=== PATIENT | male | born 1965 | race Hispanic/Latino ===

== ENCOUNTER 2017-11-30 17:53 | Emergency (ER) | payer BC ==
[2017-11-30 18:10] VITALS: O2SAT 98
[2017-11-30 18:21] VITALS: BMI 30.8
[2017-11-30] MEDS ORDERED: Sodium Chloride 0.9% 1,000 ML IV ONE (18:32)
[2017-11-30 19:07] LABS: BASO # 0.07 K/mm3 (0.0-2.0); BASO % 0.8 % (0.0-3.0); EOS # 0.5 (0.0-0.7); EOS % 5.7 % (1.5-5.0); GRAN # 5.49 (1.4-6.5); GRAN % 58.8 % (50.0-68.0); HEMOGLOBIN 14.8 g/dL (14.0-18.0); LYMPH # 2.5 (1.2-3.4); MEAN CELL VOLUME 82.1 fl (80.0-105.0); MEAN CORPUSCULAR HEMOGLOBIN 28.2 pg (25.0-35.0); MEAN CORPUSCULAR HGB CONC 34.3 g/dl (31.0-37.0); MEAN PLATELET VOLUME 9.9 fl (7.0-11.0); MONO # 0.7 (0.1-0.6); MONO % 7.7 % (1.0-6.0); RBC 5.25 10^6/uL (3.5-6.1); WHITE BLOOD COUNT 9.3 10^3/ul (4.5-11.0)
--- NOTE | 2017-11-30 19:21 | ED PDOC ---
Arrival/HPI - General Chief Complaint: Dizziness/Lightheaded Time Seen by Provider: 11/30/17 18:16 Historian: Patient - History of Present Illness Narrative History of Present Illness (Text): 11/30/17 19:21 52yo male with Past medical history of hypertension, CAD with cardiac stent who was bib EMS for dizziness. Patient states after walking up flight of stairs , he sat down and then felt dizzy. He describes dizziness as lightheadedness. Also report nasal congestion and facial pressure over his sinuses. Notes that the congestion started today. States he feels thirsty, even after drinking water. He is s/p left elbow surgery repair 6weeks ago. States he fractured his elbow and required a surgery. He denies shortness of breath, diaphoresis, fever , chills, sore throat, tinnitus, chest pain, nausea, vomiting, focal weakness, slurred speech. Past Medical History - Provider Review Nursing Documentation Reviewed: Yes - Infectious Disease Hx of Infectious Diseases: None - Tetanus Immunization Tetanus Immunization: Unknown - Cardiac Hx Cardiac Disorders: Yes Hx Peripheral Vascular Disease: Yes (DVT PARTIAL L LEG 01-12-15) - Pulmonary Hx Respiratory Disorders: Yes Hx Asthma: Yes - Neurological Hx Neurological Disorder: No - HEENT Hx HEENT Disorder: No - Renal Hx Renal Disorder: Yes (Kidney stones) - Endocrine/Metabolic Hx Endocrine Disorders: Yes Hx Diabetes Mellitus Type 2: Yes - Hematological/Oncological Hx Blood Disorders: No - Integumentary Hx Dermatological Disorder: No - Musculoskeletal/Rheumatological Hx Musculoskeletal Disorders: No - Gastrointestinal Hx Gastrointestinal Disorders: Yes Hx Gastroesophageal Reflux: Yes - Genitourinary/Gynecological Hx Genitourinary Disorders: No - Psychiatric Hx Psychophysiologic Disorder: No Hx Substance Use: No - Surgical History Hx Angioplasty: Yes Hx Musculoskeletal Surgery: Yes Hx Orthopedic Surgery: (knee and ankle) - Anesthesia Hx Anesthesia: Yes Hx Anesthesia Reactions: No Hx Malignant Hyperthermia: No - Suicidal Assessment Feels Threatened In Home Enviroment: No Family/Social History - Physician Review Nursing Documentation Reviewed: Yes Family/Social History: Unknown Family HX Smoking Status: Never Smoked Hx Alcohol Use: No Hx Substance Use: No Hx Substance Use Treatment: No Allergies/Home Meds Allergies/Adverse Reactions: Allergies iodine Allergy (Verified 11/30/17 18:59) ANGIOEDEMA shellfish derived Allergy (Verified 11/30/17 18:59) ANAPHYLAXIS Review of Systems - Physician Review All systems were reviewed & negative as marked: Yes - Review of Systems Constitutional: Normal Eyes: Normal ENT: Sinus Congestion Respiratory: Normal Cardiovascular: Normal Gastrointestinal: Normal Genitourinary Male: Normal Musculoskeletal: Normal Skin: Normal Neurological: Dizziness. absent: Headache, Focal Weakness, Gait Changes, Speech Changes, Facial Droop Endocrine: Normal Hemo/Lymphatic: Normal Psychiatric: Normal Physical Exam Vital Signs Reviewed: Yes Vital Signs Temp Pulse Resp BP Pulse Ox 11/30/17 20:30 98.7 F 11/30/17 18:09 98.8 F 76 18 124/86 98 Temperature: Afebrile Blood Pressure: Normal Pulse: Regular Respiratory Rate: Normal Appearance: Positive for: Well-Appearing, Non-Toxic, Comfortable Pain Distress: None Mental Status: Positive for: Alert and Oriented X 3 - Systems Exam Head: Present: Atraumatic, Normocephalic Pupils: Present: PERRL Extroacular Muscles: Present: EOMI Conjunctiva: Present: Normal Mouth: Present: Moist Mucous Membranes Nose (Internal): Present: Other (Tenderness over the maxillary and frontal sinuses) Neck: Present: Normal Range of Motion Respiratory/Chest: Present: Clear to Auscultation, Good Air Exchange. No: Respiratory Distress, Accessory Muscle Use Cardiovascular: Present: Regular Rate and Rhythm, Normal S1, S2. No: Murmurs Abdomen: No: Tenderness, Distention, Peritoneal Signs Back: Present: Normal Inspection Upper Extremity: Present: Normal Inspection. No: Cyanosis, Edema Lower Extremity: Present: Normal Inspection. No: Edema Neurological: Present: GCS=15, CN II-XII Intact, Speech Normal, Motor Func Grossly Intact, Normal Sensory Function, Normal Cerebellar Funct, Norm Deep Tendon Reflexes, Gait Normal, Memory Normal, Normal 2Pt Descrimination, Other ( No focal neurological deficit) Skin: Present: Warm, Dry, Normal Color. No: Rashes Psychiatric: Present: Alert, Oriented x 3, Normal Insight, Normal Concentration Medical Decision Making ED Course and Treatment: 11/30/17 20:46 PT in Emergency department for stated history. He was hemodynamically stable in Emergency department. his lab was unremarkable EKG NSR @76bpm. NSTMI He was orthostatic and hydrated in Emergency department. Head CT IMPRESSION: 1. No definite acute intracranial abnormality. 2. Sinus disease. 3. Incidental/non-acute findings are described above. Result was DW the pt. He was offered admission for observation secondary to his cardiac history, although he had no chest pain, but he declined admission. His dizziness is likely secondary to the sinus disease. He will be DC home with Augmentin. Referred to ENT. - Lab Interpretations Lab Results: 11/30/17 18:38 04 18:38 Lab Results 11/30/17 18:38: PT 12.1, INR 1.06, APTT 30.8, D-Dimer, Quantitative < 200 11/30/17 18:38: Sodium 140, Potassium 3.6, Chloride 103, Carbon Dioxide 28, Anion Gap 12, BUN 16, Creatinine 0.7 L, Est GFR ( Amer) > 60, Est GFR ( Non-Af Amer) > 60, Random Glucose 135 H, Calcium 9.4, Magnesium 2.0, Total Bilirubin 0.2, AST 30, ALT 35, Alkaline Phosphatase 55, Lactate Dehydrogenase 554, Total Creatine Kinase 316 H, CK-MB (CK-2) 8.2 H, CK-MB (CK-2) % 2.6, Troponin I < 0.01 D, Total Protein 7.5, Albumin 4.1, Globulin 3.5, Albumin/ Globulin Ratio 1.2 11/30/17 18:38: WBC 9.3 D, RBC 5.25, Hgb 14.8, Hct 43.1, MCV 82.1, MCH 28.2, MCHC 34.3, RDW 14.0, Plt Count 276, MPV 9.9, Gran % 58.8, Lymph % (Auto) 27.0, [place] % (Auto) 7.7 H, Eos % (Auto) 5.7 H, Baso % (Auto) 0.8, Gran # 5.49, Lymph # (Auto) 2.5, [place] # (Auto) 0.7 H, Eos # (Auto) 0.5, Baso # (Auto) 0.07 - RAD Interpretation Radiology Orders: 11/30/17 18:29 HEAD W/O CONTRAST [CT] Stat - Medication Orders Current Medication Orders: Sodium Chloride (Sodium Chloride 0.9%) 1,000 mls @ 250 mls/hr IV .Q4H ONE Stop: 11/30/17 22:31 Last Admin: 11/30/17 18:36 Dose: 250 mls/hr eMAR Start Stop Document 11/30/17 18:36 OCS (Rec: 11/30/17 18:37 OCS [id number]) Intravenous Solution Start Date 11/30/17 Start Time 18:37 Clindamycin Phosphate 600 mg/ (Sodium Chloride) 54 mls @ 108 mls/hr IVPB STAT STA PRN Reason: Protocol Stop: 11/30/17 21:07 Disposition/Present on Arrival - Present on Arrival Any Indicators Present on Arrival: No History of DVT/PE: Yes History of Uncontrolled Diabetes: No Urinary Catheter: No History of Decub. Ulcer: No History Surgical Site Infection Following: None - Disposition Have Diagnosis and Disposition been Completed?: Yes Diagnosis: Acute sinusitis, Dizziness Disposition: HOME/ ROUTINE Disposition Time: 20:45 Patient Plan: Discharge Patient Problems: Current Active Problems Problem Status Onset Acute sinusitis Acute Dizziness Acute Condition: STABLE Discharge Instructions (ExitCare): Sinusitis, Adult (DC), Dizziness, Nonvertigo , (DC) Additional Instructions: Follow up with your doctor/ENT Drink plenty of fluid Return to Emergency department for any new symptoms Prescriptions: Amoxicillin/Clavulanate [Augmentin 875 MG-125 MG] 1 tab PO BID #20 tab Referrals: Mati Joel MD [Primary Care Provider] - Follow up with primary Forms: [employer] (Yi)
[2017-11-30 19:25] LABS: INR 1.06 (0.93-1.08); PARTIAL THROMBOPLASTIN TIME 30.8 Seconds (25.1-36.5); PROTHROMBIN TIME 12.1 SECONDS (9.4-12.5)
[2017-11-30 19:33] LABS: ALB/GLOB RATIO 1.2 (1.1-1.8); ALBUMIN 4.1 g/dL (3.0-4.8); ALT/SGPT 35 U/L (7-56); AST/SGOT 30 U/L (17-59); BLOOD UREA NITROGEN 16 mg/dL (7-21); CALCIUM 9.4 mg/dL (8.4-10.5); GFR AFRICAN-AMERICAN > 60; GFR NON-AFRICAN AMERICAN > 60
[2017-11-30 19:44] LABS: TROPONIN I < 0.01 ng/mL
[2017-11-30 19:52] LABS: CK MB% 2.6 % (2.5-3.0); CK-MB 8.2 ng/mL (0.0-3.6)
[2017-11-30 19:53] LABS: D DIMER < 200 ng/mL (0-243)
--- NOTE | 2017-11-30 20:07 | CT ---
EXAM: CT Head Without Intravenous Contrast CLINICAL HISTORY: 52 years old, male; Pain; Headache; Headache not specified TECHNIQUE: Axial computed tomography images of the head/brain without intravenous contrast. All CT scans at this facility use one or more dose reduction techniques, viz.: automated exposure control; ma/kV adjustment per patient size (including targeted exams where dose is matched to indication; i.e. head); or iterative reconstruction technique. Coronal and sagittal reformatted images were created and reviewed. COMPARISON: No relevant prior studies available. FINDINGS: Brain: Minimal atrophy. No intracranial hemorrhage. No mass. No definite edema. Ventricles: No hydrocephalus. Bones/joints: No acute fracture. Soft tissues: Unremarkable. Sinuses: Near complete opacification of LEFT sphenoid sinus. Moderate mucosal thickening of ethmoid sinuses. Scattered minimal to mild mucosal thickening of remaining sinuses. Mastoid air cells: No mastoid effusion. Orbits: Unremarkable as visualized. IMPRESSION: 1. No definite acute intracranial abnormality. 2. Sinus disease. 3. Incidental/non-acute findings are described above.
[2017-11-30] MEDS ORDERED: Magnesium Sulfate 2 GM in Sodium Chloride 0.9% 100 ML IVPB ONE (20:23)
[2017-11-30 20:30] VITALS: TEMP 98.7
[2017-11-30] MEDS ORDERED: Amoxicillin-Clav 875-125 mg Tab PO STA (20:41)
[2017-11-30 21:02] VITALS: BP 130/86; PULSE 80; RESP 20
--- NOTE | 2017-12-01 21:02 | CARD ---
APPROVED REPORT EKG Measurement Heart [id number] <Conclusion> Normal sinus rhythm Nonspecific T wave abnormality Abnormal ECG
== END 2017-11-30 21:30 | disposition home or self-care (01) ==
LOC: ED 17:53
DX: J01.90 Acute sinusitis, unspecified (principal); R42 Dizziness and giddiness; I10 Essential (primary) hypertension; I25.10 Atherosclerotic heart disease of native coronary artery without angina pectoris; E11.9 Type 2 diabetes mellitus without complications
CPT/HCPCS: 70450; 80053; 82550; 82553; 83615; 83735; 84484; 85025; 85378; 85610; 85730; 93005; 99285; J7040

== ENCOUNTER 2018-01-30 23:30 | Emergency (ER) | payer BC ==
[2018-01-30 23:30] VITALS: BMI 30.8
[2018-01-30 23:49] VITALS: TEMP 98.3
--- NOTE | 2018-01-30 23:59 | ED PDOC ---
Arrival/HPI - General Chief Complaint: Chest Pain Time Seen by Provider: 01/30/18 23:35 Historian: Patient - History of Present Illness Narrative History of Present Illness (Text): 01/30/18 23:56 Urban Herron is a 52 year old male, whose past medical history includes CABG, CAD with coronary stents, and diabetes, who presents to the Emergency department complaining of chest pain. Patient states he was at home watching TV when he began experiencing mid-sternal chest pain and a throbbing frontal headache. Patient denies any fever, chills, shortness of breath, nausea, vomiting, diarrhea, urinary symptoms, back pain, neck pain, vision changes, dizziness, or any other complaints. Past Medical History - Provider Review Nursing Documentation Reviewed: Yes - Infectious Disease Hx of Infectious Diseases: None - Tetanus Immunization Tetanus Immunization: Unknown - Cardiac Hx Cardiac Disorders: Yes Hx Peripheral Vascular Disease: Yes (DVT PARTIAL L LEG 01-12-15) - Pulmonary Hx Respiratory Disorders: Yes Hx Asthma: Yes - Neurological Hx Neurological Disorder: No - HEENT Hx HEENT Disorder: No - Renal Hx Renal Disorder: Yes (Kidney stones) - Endocrine/Metabolic Hx Endocrine Disorders: Yes Hx Diabetes Mellitus Type 2: Yes - Hematological/Oncological Hx Blood Disorders: No - Integumentary Hx Dermatological Disorder: No - Musculoskeletal/Rheumatological Hx Musculoskeletal Disorders: No - Gastrointestinal Hx Gastrointestinal Disorders: Yes Hx Gastroesophageal Reflux: Yes - Genitourinary/Gynecological Hx Genitourinary Disorders: No - Psychiatric Hx Psychophysiologic Disorder: No Hx Substance Use: No - Surgical History Hx Angioplasty: Yes Hx Musculoskeletal Surgery: Yes Hx Open Heart Surgery: Yes Hx Orthopedic Surgery: (knee and ankle) - Anesthesia Hx Anesthesia: Yes Hx Anesthesia Reactions: No Hx Malignant Hyperthermia: No - Suicidal Assessment Feels Threatened In Home Enviroment: No Family/Social History - Physician Review Nursing Documentation Reviewed: Yes Family/Social History: Unknown Family HX Smoking Status: Never Smoked Hx Alcohol Use: No Hx Substance Use: No Hx Substance Use Treatment: No Allergies/Home Meds Allergies/Adverse Reactions: Allergies iodine Allergy (Verified 01/30/18 23:49) ANGIOEDEMA shellfish derived Allergy (Verified 01/30/18 23:49) ANAPHYLAXIS Review of Systems - Physician Review All systems were reviewed & negative as marked: Yes - Review of Systems Constitutional: Normal. absent: Fevers Eyes: Normal ENT: Normal Respiratory: Normal. absent: SOB, Cough Cardiovascular: Chest Pain Gastrointestinal: Normal. absent: Abdominal Pain, Diarrhea, Nausea, Vomiting Genitourinary Male: Normal. absent: Dysuria, Frequency, Hematuria, Urinary Output Changes Musculoskeletal: Normal. absent: Back Pain, Neck Pain Skin: Normal. absent: Rash Neurological: Headache. absent: Dizziness Endocrine: Normal Hemo/Lymphatic: Normal Psychiatric: Normal Physical Exam Vital Signs Reviewed: Yes Vital Signs Temp Pulse Resp BP Pulse Ox 01/31/18 02:15 66 13 140/91 H 96 01/30/18 23:44 98.3 F 60 18 147/96 H 100 Temperature: Afebrile Blood Pressure: Normal Pulse: Regular Respiratory Rate: Normal Appearance: Positive for: Well-Appearing, Non-Toxic, Comfortable Pain Distress: None Mental Status: Positive for: Alert and Oriented X 3 - Systems Exam Head: Present: Atraumatic, Normocephalic Pupils: Present: PERRL Extroacular Muscles: Present: EOMI Conjunctiva: Present: Normal Ears: Present: Normal, NORMAL TM, Normal Canal. No: Erythema, TM Bulging, Fluid , TM Perf Mouth: Present: Moist Mucous Membranes Pharnyx: Present: Normal. No: ERYTHEMA, EXUDATE, TONSILS ENLARGED, Peritonsilar Swelling, Uvular Deviation, Muffled/Hoarse Voice, Strider, Soft Palate/Uvular Edema Nose (External): Present: Atraumatic Nose (Internal): Present: Normal Inspection Neck: Present: Normal Range of Motion. No: Meningeal Signs, MIDLINE TENDERNESS , Paraspinal Tenderness Respiratory/Chest: Present: Clear to Auscultation, Good Air Exchange. No: Respiratory Distress, Accessory Muscle Use Cardiovascular: Present: Regular Rate and Rhythm, Normal S1, S2. No: Murmurs Abdomen: No: Tenderness, Distention, Peritoneal Signs Back: Present: Normal Inspection. No: CVA Tenderness, Midline Tenderness, Paraspinal Tenderness Upper Extremity: Present: Normal Inspection. No: Cyanosis, Edema Lower Extremity: Present: Normal Inspection. No: Edema Neurological: Present: GCS=15, CN II-XII Intact, Speech Normal, Motor Func Grossly Intact, Normal Sensory Function, Normal Cerebellar Funct Skin: Present: Warm, Dry, Normal Color. No: Rashes Psychiatric: Present: Alert, Oriented x 3, Normal Insight, Normal Concentration Medical Decision Making ED Course and Treatment: 01/30/18 23:56 Impression: 52 year old male complaining of chest pain and throbbing frontal headache tonight. Plan: -- CT Head w/o contrast -- EKG -- Chest X-ray -- Labs, cardiac enzymes -- IV fluids -- Reassess and disposition Prior Visits: Notes and results from previous visits were reviewed. Progress Notes: Reviewed EKG, NSR at 62 bpm. Non-specific ST/T wave changes. 01/31/18 01:33 CT Head shows: No intracranial hemorrhage. No intracranial edema. No evidence of infarct. Again seen is partial opacification of the frontal sinuses, ethmoid sinuses, and left sphenoid sinus similar to prior. Recommend clinical correlation with regards to symptoms of sinusitis. IMPRESSION: Sinus disease as above. 01/31/18 03:31 Discussed results and plan with pt. Pt was offered hospital admission for further observation, pt refused, states he wants to go home. The patient is choosing to leave against medical advice. I have personally explained to the patient that choosing to do so may result in permanent bodily harm or . I have discussed at great length that without further evaluation and monitoring there may be unforeseen circumstances and/or deterioration causing permanent bodily harm or as a result of their choice. The patient is alert, oriented, and shows the mental capacity to make clear decisions regarding the patients health care at this time. The patient continues to wish to leave against medical advice. In light of the patients decision to leave against medical advice, patient is aware of the importance to following up as instructed. The patient has been advised that they should return to the emergency room immediately if they change their mind at any time, or if their condition begins to change or worsen in any way. - Lab Interpretations Lab Results: 01/30/18 23:50 01/30/18 23:50 Lab Results 01/30/18 23:50: PT 12.0, INR 1.05, APTT 29.1 01/30/18 23:50: WBC 8.2, RBC 4.97, Hgb 13.9 L, Hct 41.0 L, MCV 82.5, MCH 28.0, MCHC 33.9, RDW 14.0, Plt Count 267, MPV 10.0 01/30/18 23:50: Sodium 138, Potassium 3.7, Chloride 102, Carbon Dioxide 25, Anion Gap 15, BUN 17, Creatinine 0.8, Est GFR ( Amer) > 60, Est GFR (Non- Af Amer) > 60, Random Glucose 87, Calcium 8.9, Total Bilirubin 0.4, AST 26, ALT 31, Alkaline Phosphatase 54, Lactate Dehydrogenase 492, Total Creatine Kinase 425 H, CK-MB (CK-2) 9.1 H, CK-MB (CK-2) % 2.1 L, Troponin I < 0.01, Total Protein 7.4, Albumin 4.1, Globulin 3.2, Albumin/Globulin Ratio 1.3 01/30/18 23:45: POC Glucose (mg/dL) 71 I have reviewed the lab results: Yes - RAD Interpretation Radiology Orders: 01/31/18 00:05 HEAD W/O CONTRAST [CT] Stat 01/31/18 00:06 CHEST PORTABLE [RAD] Stat [employer]: ED Physician, Radiologist - EKG Interpretation Interpreted by ED Physician: Yes Type: 12 lead EKG - Scribe Statement The provider has reviewed the documentation as recorded by the Jenifer Angel Provider Scribe Attestation: All medical record entries made by the Scribe were at my direction and personally dictated by me. I have reviewed the chart and agree that the record accurately reflects my personal performance of the history, physical exam, medical decision making, and the department course for this patient. I have also personally directed, reviewed, and agree with the discharge instructions and disposition. Disposition/Present on Arrival - Present on Arrival Any Indicators Present on Arrival: No History of DVT/PE: Yes History of Uncontrolled Diabetes: No Urinary Catheter: No History of Decub. Ulcer: No History Surgical Site Infection Following: None - Disposition Have Diagnosis and Disposition been Completed?: Yes Diagnosis: Chest pain Disposition: AGAINST MEDICAL ADVICE Disposition Time: 03:34 Condition: STABLE Discharge Instructions (ExitCare): Chest Pain (ED) Forms: [employer] (Bhutanese)
[2018-01-31 00:28] LABS: ALB/GLOB RATIO 1.3 (1.1-1.8); ALBUMIN 4.1 g/dL (3.0-4.8); ALT/SGPT 31 U/L (7-56); AST/SGOT 26 U/L (17-59); BLOOD UREA NITROGEN 17 mg/dL (7-21); CALCIUM 8.9 mg/dL (8.4-10.5); GFR AFRICAN-AMERICAN > 60; GFR NON-AFRICAN AMERICAN > 60; HEMOGLOBIN 13.9 g/dL (14.0-18.0); MEAN CELL VOLUME 82.5 fl (80.0-105.0); MEAN CORPUSCULAR HGB CONC 33.9 g/dl (31.0-37.0); RBC 4.97 10^6/uL (3.5-6.1); WHITE BLOOD COUNT 8.2 10^3/ul (4.5-11.0)
[2018-01-31 00:40] LABS: TROPONIN I < 0.01 ng/mL
[2018-01-31 00:45] LABS: INR 1.05 (0.93-1.08); PARTIAL THROMBOPLASTIN TIME 29.1 Seconds (25.1-36.5)
[2018-01-31 00:47] LABS: CK MB% 2.1 % (2.5-3.0); CK-MB 9.1 ng/mL (0.0-3.6)
--- NOTE | 2018-01-31 01:29 | CT ---
EXAM: CT Head Without Intravenous Contrast EXAM DATE/TIME: 01/31/2018 12:05 AM CLINICAL HISTORY: 52 years old, male; Pain; Headache TECHNIQUE: Axial computed tomography images of the head/brain without intravenous contrast. All CT scans at this facility use one or more dose reduction techniques, viz.: automated exposure control; ma/kV adjustment per patient size (including targeted exams where dose is matched to indication; i.e. head); or iterative reconstruction technique. Coronal and sagittal reformatted images were created and reviewed. COMPARISON: CT - HEAD W/O CONTRAST 2017-11-30 19:30 FINDINGS: No intracranial hemorrhage. No intracranial edema. No evidence of infarct. Again seen is partial opacification of the frontal sinuses, ethmoid sinuses, and left sphenoid sinus similar to prior. Recommend clinical correlation with regards to symptoms of sinusitis. IMPRESSION: Sinus disease as above.
[2018-01-31 03:52] VITALS: BP 138/78; PULSE 68; RESP 16; O2SAT 98
--- NOTE | 2018-01-31 09:36 | RAD ---
HISTORY: pain COMPARISON: 01/12/2015 FINDINGS: LUNGS: No active pulmonary disease. PLEURA: No significant pleural effusion identified, no pneumothorax apparent. CARDIOVASCULAR: Normal. OSSEOUS STRUCTURES: Sternal wires VISUALIZED UPPER ABDOMEN: Normal. OTHER FINDINGS: None. IMPRESSION: No active disease.
--- NOTE | 2018-01-31 22:33 | CARD ---
APPROVED REPORT EKG Measurement Heart [id number] <Conclusion> Normal sinus rhythm Cannot rule out Inferior infarct, age undetermined Abnormal ECG
== END 2018-01-31 03:48 | disposition left against medical advice (07) ==
LOC: ED 23:30
DX: R07.9 Chest pain, unspecified (principal); I25.10 Atherosclerotic heart disease of native coronary artery without angina pectoris; E11.9 Type 2 diabetes mellitus without complications; Z95.1 Presence of aortocoronary bypass graft

== ENCOUNTER 2018-08-07 00:59 | Emergency (ER) | payer BC ==
[2018-08-07 01:09] VITALS: RESP 18; TEMP 97.9; BMI 30.1
--- NOTE | 2018-08-07 01:12 | ED PDOC ---
Arrival/HPI - General Historian: Patient, EMS - History of Present Illness Narrative History of Present Illness (Text): 08/07/18 01:05 52 y/o male, pmh including cabg/dm/hld, nkda, biba c/o elevated blood pressure and dizziness x 6 hours. Pt. stated that he had dinner last night, went to check his BP numerous times which the highest around 159/102, gave himself 25mg metoprolol approx. 1 hours ago prior to arrival as the BP is still high with dizziness, here at the ER for evaluation, no numbness or tingling, no chest pain or palpitation, no night sweat, no change in vision, no other medical or psychological complaints. <Gerardo Ortiz - Last Filed: 08/07/18 02:08> Past Medical History - Provider Review Nursing Documentation Reviewed: Yes - Infectious Disease Hx of Infectious Diseases: None - Tetanus Immunization Tetanus Immunization: Unknown - Cardiac Hx Cardiac Disorders: Yes Hx Peripheral Vascular Disease: Yes (DVT PARTIAL L LEG 01-12-15) - Pulmonary Hx Respiratory Disorders: Yes Hx Asthma: Yes - Neurological Hx Neurological Disorder: No - HEENT Hx HEENT Disorder: No - Renal Hx Renal Disorder: Yes (Kidney stones) - Endocrine/Metabolic Hx Endocrine Disorders: Yes Hx Diabetes Mellitus Type 2: Yes - Hematological/Oncological Hx Blood Disorders: No - Integumentary Hx Dermatological Disorder: No - Musculoskeletal/Rheumatological Hx Musculoskeletal Disorders: No - Gastrointestinal Hx Gastrointestinal Disorders: Yes Hx Gastroesophageal Reflux: Yes - Genitourinary/Gynecological Hx Genitourinary Disorders: No - Psychiatric Hx Psychophysiologic Disorder: No Hx Substance Use: No - Surgical History Hx Angioplasty: Yes Hx Musculoskeletal Surgery: Yes Hx Open Heart Surgery: Yes Hx Orthopedic Surgery: (knee and ankle) - Anesthesia Hx Anesthesia: Yes Hx Anesthesia Reactions: No Hx Malignant Hyperthermia: No - Suicidal Assessment Feels Threatened In Home Enviroment: No <Gerardo Ortiz - Last Filed: 08/07/18 02:08> Family/Social History - Physician Review Nursing Documentation Reviewed: Yes Family/Social History: Unknown Family HX Smoking Status: Never Smoked Hx Alcohol Use: No Hx Substance Use: No Hx Substance Use Treatment: No <Gerardo Ortiz - Last Filed: 08/07/18 02:08> Allergies/Home Meds <Gerardo Ortiz - Last Filed: 08/07/18 02:08> <Hal Charles - Last Filed: 08/07/18 02:28> Allergies/Adverse Reactions: Allergies iodine Allergy (Verified 01/30/18 23:49) ANGIOEDEMA shellfish derived Allergy (Verified 01/30/18 23:49) ANAPHYLAXIS Review of Systems - Review of Systems Constitutional: absent: Fatigue Eyes: absent: Vision Changes ENT: absent: Hearing Changes Respiratory: absent: SOB, Cough Cardiovascular: absent: Chest Pain Gastrointestinal: absent: Abdominal Pain, Diarrhea, Nausea, Vomiting Skin: absent: Rash, Pruritis, Skin Lesions Neurological: Dizziness. absent: Headache, Focal Weakness, Gait Changes, Speech Changes, Facial Droop Psychiatric: absent: Anxiety, Depression, Suicidal Ideation <Gerardo Ortiz - Last Filed: 08/07/18 02:08> Physical Exam Vital Signs Reviewed: Yes Temperature: Afebrile Blood Pressure: Hypertensive Pulse: Regular Respiratory Rate: Normal Appearance: Positive for: Well-Appearing, Non-Toxic, Comfortable Pain Distress: None Mental Status: Positive for: Alert and Oriented X 3 - Systems Exam Head: Present: Atraumatic, Normocephalic. No: Tenderness, Contusion, Swelling, Ecchymosis, Abrasion, Laceration, Other Pupils: Present: PERRL Extroacular Muscles: Present: EOMI Conjunctiva: Present: Normal Ears: Present: NORMAL TM, Normal Canal. No: Erythema Mouth: Present: Moist Mucous Membranes Pharnyx: No: ERYTHEMA, EXUDATE, TONSILS ENLARGED Nose (External): Present: Atraumatic. No: Abrasion, Contusion, Laceration Nose (Internal): Present: Normal Inspection, No Active Bleeding. No: Rhinorrhea, Septal Hematoma, Epistaxis Neck: Present: Normal Range of Motion, Trachea Midline. No: Meningeal Signs, MIDLINE TENDERNESS, Paraspinal Tenderness, Lymphadenopathy Respiratory/Chest: Present: Clear to Auscultation, Good Air Exchange. No: Respiratory Distress, Accessory Muscle Use Cardiovascular: Present: Regular Rate and Rhythm, Normal S1, S2. No: Murmurs Abdomen: No: Tenderness, Distention, Peritoneal Signs, Rebound, Guarding Back: Present: Normal Inspection Upper Extremity: Present: Normal Inspection. No: Cyanosis, Edema Lower Extremity: Present: Normal Inspection. No: Edema Neurological: Present: GCS=15, CN II-XII Intact, Speech Normal, Motor Func Grossly Intact, Gait Normal, Memory Normal, Other (no focal neurological deficits, NIHSS is zero, normal finger to nose test, normal heel to cox test) Skin: Present: Warm, Dry, Normal Color. No: Rashes Psychiatric: Present: Alert, Oriented x 3, Normal Insight, Normal Concentration <Gerardo Ortiz - Last Filed: 08/07/18 02:08> Vital Signs Temp Pulse Resp BP Pulse Ox 08/07/18 02:15 65 18 137/74 100 08/07/18 01:08 97.9 F 62 18 135/91 H 99 <Hal Charles - Last Filed: 08/07/18 02:28> Medical Decision Making ED Course and Treatment: 08/07/18 01:163 -FS 89 -Labs -EKG -CT head -IVF/meclizine -Orthostatic v/s -Observe and reassess 08/07/18 02:08 -Orthostatic v/s is negative. -EKG: NSR @ 63 BPM, no ST elevation or depression, no T wave inversion. -CT head No acute intracranial abnormality. -Labs are non-significant -CPK 328, stated that he was doing gym earlier during the day. -BNP within normal limit -Mg within normal limit -Pt. feels asymptomatic at this time with the current BP and meclizine, walking around with no focal neurological deficits, all labs/radiology results discussed with the patient, he request to be discharged home without further evaluation. -Discharge home with education on stay hydrated, meclizine as needed, follow up with your own pmd and neurologist within 2 days, return to the ER for any new or worsening signs or symptoms. - RAD Interpretation Radiology Orders: EXAM: CT Head without Intravenous Contrast. CLINICAL HISTORY: Htn/dizziness, r/o bleed TECHNIQUE: Axial computed tomography images of the head/brain without intravenous contrast. 1045.42 mGy-cm COMPARISON: None provided. FINDINGS: BRAIN No acute intraparenchymal hemorrhage. No mass lesion. No CT evidence for acute territorial infarct. No midline shift or extra-axial collections. VENTRICLES: No hydrocephalus. ORBITS: The orbits are unremarkable. SINUSES AND MASTOIDS: The paranasal sinuses and mastoid air cells are clear. BONES: No fracture. SOFT TISSUES: Unremarkable. IMPRESSION: No acute intracranial abnormality. Electronically signed on Aug 07, 2018 1:56:51 AM EST by: Ez Bell M.D., EVELYNE Certified By [facility] Fellowship Trained MRI and CT Specialist Deputy K 9: Radiologist - EKG Interpretation EKG Interpretation (Text): 08/07/18 01:19 -EKG: NSR @ 63 BPM, no ST elevation or depression, no T wave inversion. Interpreted by ED Physician: Yes Type: 12 lead EKG <Gerardo Ortiz Q - Last Filed: 08/07/18 02:08> - Lab Interpretations Lab Results: 08/07/18 01:20 08/07/18 01:20 Lab Results 08/07/18 01:20: Sodium 138, Potassium 3.8, Chloride 104, Carbon Dioxide 26, Anion Gap 12, BUN 15, Creatinine 0.7 L, Est GFR ( Amer) > 60, Est GFR (Non-Af Amer) > 60, Random Glucose 102, Calcium 9.9, Magnesium 2.1, Total Bilirubin 0.3, AST 27, ALT 39, Alkaline Phosphatase 60, Total Creatine Kinase 328 H, CK-MB (CK-2) 7.6 H, CK-MB (CK-2) % 2.3 L, Troponin I < 0.01, NT-Pro-B Natriuret Pep 24.5, Total Protein 7.7, Albumin 4.3, Globulin 3.4, Albumin/Globulin Ratio 1.3 08/07/18 01:20: WBC 9.6, RBC 5.07, Hgb 14.4, Hct 43.0, MCV 84.8, MCH 28.4, MCHC 33.5, RDW 13.7, Plt Count 302, MPV 9.9, Gran % 56.6, Lymph % (Auto) 26.8, Preble % (Auto) 9.2 H, Eos % (Auto) 7.0 H, Baso % (Auto) 0.4, Gran # 5.43, Lymph # (Auto) 2.6, Preble # (Auto) 0.9 H, Eos # (Auto) 0.7, Baso # (Auto) 0.04 - RAD Interpretation Radiology Orders: 08/07/18 01:12 HEAD W/O CONTRAST [CT] Stat - Medication Orders Current Medication Orders: Discontinued Medications Sodium Chloride (Sodium Chloride 0.9%) 1,000 mls @ 100 mls/hr IV .Q10H BURT Last Admin: 08/07/18 01:31 Dose: 100 mls/hr eMAR Start Stop Document 08/07/18 01:31 AD (Rec: 08/07/18 01:31 AD [facility] [place]-[id number]) Intravenous Solution Start Date 08/07/18 Start Time 01:31 Meclizine HCl (Antivert) 50 mg PO STAT STA Stop: 08/07/18 01:13 Last Admin: 08/07/18 01:31 Dose: 50 mg <Hal Charles - Last Filed: 08/07/18 02:28> - PA / COMBINATION WELDER / Resident Statement WILLIAM has reviewed & agrees with the documentation as recorded. <Gerardo Ortiz - Last Filed: 08/07/18 02:08> - PA / COMBINATION WELDER / Resident Statement WILLIAM has reviewed & agrees with the documentation as recorded. <Hal Charles - Last Filed: 08/07/18 02:28> Disposition/Present on Arrival - Present on Arrival Any Indicators Present on Arrival: No History of DVT/PE: Yes History of Uncontrolled Diabetes: No Urinary Catheter: No History of Decub. Ulcer: No History Surgical Site Infection Following: None - Disposition Have Diagnosis and Disposition been Completed?: Yes Disposition Time: 02:10 Patient Plan: Discharge <Gerardo Ortiz - Last Filed: 08/07/18 02:08> <Hal Charles - Last Filed: 08/07/18 02:28> - Disposition Diagnosis: Dizziness, Elevated CPK Disposition: HOME/ ROUTINE Condition: IMPROVED Additional Instructions: -Discharge home with education on stay hydrated, meclizine as needed, follow up with your own pmd and neurologist within 2 days, return to the ER for any new or worsening signs or symptoms. Prescriptions: Meclizine [Meclizine*] 25 mg PO Q6 #30 tab Referrals: [facility] at [facility] [place] [Outside] - Follow up with primary Stu Weber MD [Staff Provider] - Follow up with primary Forms: WORK NOTE
[2018-08-07] MEDS ORDERED: Sodium Chloride 0.9% 1,000 ML IV SCH (01:15)
[2018-08-07 01:50] LABS: BASO # 0.04 K/mm3 (0.0-2.0); BASO % 0.4 % (0.0-3.0); EOS # 0.7 (0.0-0.7); GRAN # 5.43 (1.4-6.5); GRAN % 56.6 % (50.0-68.0); HEMOGLOBIN 14.4 g/dL (14.0-18.0); LYMPH # 2.6 (1.2-3.4); LYMPH % 26.8 % (22.0-35.0); MEAN CELL VOLUME 84.8 fl (80.0-105.0); MEAN CORPUSCULAR HEMOGLOBIN 28.4 pg (25.0-35.0); MEAN CORPUSCULAR HGB CONC 33.5 g/dl (31.0-37.0); MEAN PLATELET VOLUME 9.9 fl (7.0-11.0); MONO # 0.9 (0.1-0.6); MONO % 9.2 % (1.0-6.0); RBC 5.07 10^6/uL (3.5-6.1); RED CELL DISTRIBUTION WIDTH 13.7 % (11.5-14.5); WHITE BLOOD COUNT 9.6 10^3/uL (4.5-11.0)
[2018-08-07 01:53] LABS: ALB/GLOB RATIO 1.3 (1.1-1.8); ALBUMIN 4.3 g/dL (3.0-4.8); ALT/SGPT 39 U/L (7-56); AST/SGOT 27 U/L (17-59); BLOOD UREA NITROGEN 15 mg/dL (7-21); CALCIUM 9.9 mg/dL (8.4-10.5); GFR NON-AFRICAN AMERICAN > 60
[2018-08-07 02:04] LABS: B-TYPE NATRIURETIC PEPTIDE 24.5 pg/mL (0-450); TROPONIN I < 0.01 ng/mL
[2018-08-07 02:18] LABS: CK MB% 2.3 % (2.5-3.0); CK-MB 7.6 ng/mL (0.0-3.6)
[2018-08-07 02:20] VITALS: BP 137/74; PULSE 65; O2SAT 100
--- NOTE | 2018-08-07 08:39 | CARD ---
APPROVED REPORT Date of service: 08/07/2018 EKG Measurement Heart [id number] <Conclusion> Normal sinus rhythm Normal ECG
--- NOTE | 2018-08-07 09:28 | CT ---
Date of service: 08/07/2018 PROCEDURE: CT HEAD WITHOUT CONTRAST. HISTORY: htn/dizziness, r/o bleed COMPARISON: None available. TECHNIQUE: Axial computed tomography images were obtained through the head/brain without intravenous contrast. Radiation dose: Total exam DLP = 1045.42 mGy-cm. This CT exam was performed using one or more of the following dose reduction techniques: Automated exposure control, adjustment of the mA and/or kV according to patient size, and/or use of iterative reconstruction technique. FINDINGS: HEMORRHAGE: No intracranial hemorrhage. BRAIN: No mass effect or edema. No atrophy or chronic microvascular ischemic changes. VENTRICLES: Unremarkable. No hydrocephalus. CALVARIUM: Unremarkable. PARANASAL SINUSES: Unremarkable as visualized. No significant inflammatory changes. MASTOID AIR CELLS: Unremarkable as visualized. No inflammatory changes. OTHER FINDINGS: The report concurs with the preliminary [facility] report IMPRESSION: No acute intracranial findings
== END 2018-08-07 02:15 | disposition home or self-care (01) ==
LOC: ED 00:59
DX: R42 Dizziness and giddiness (principal); R74.8 Abnormal levels of other serum enzymes; I10 Essential (primary) hypertension; E11.9 Type 2 diabetes mellitus without complications; E78.5 Hyperlipidemia, unspecified; Z95.1 Presence of aortocoronary bypass graft; Z86.718 Personal history of other venous thrombosis and embolism
CPT/HCPCS: 70450; 80053; 82550; 82553; 82948; 83735; 83880; 84484; 85025; 93005; 99284; J7030

== ENCOUNTER 2018-11-04 20:25 | Emergency (ER) | payer MEDICARE, BC | END 2018-11-05 | disposition home or self-care (01) | LOC: ED 11-05 ==